=== PATIENT | male | born 1980 | race Caucasian/White ===

== ENCOUNTER 2024-03-26 14:01 | Outpatient (AMB) | payer BC, SELFPAY ==
--- NOTE | 2024-03-26 14:04 | AM.OFFWIN_ITS ---
Intake Vital Signs 03/26/24 14:05 Height 5 ft 9 in Weight 209 lb BMI 30.9 BP 150/82 H Blood Pressure Location Lt brachial Position Sitting Pulse 91 Pulse Source Pulse Oximeter Temp 98.0 F Temp Source Temporal Artery Scan Pulse Oximetry (%) 98 Oxygen Delivery Method Room Air Intake Visit Reasons: [employer] cyst Intake Note: pt is here for cyst on upper abd, patient sttaed he thought it was an ingrown hair and was given antibiotics for 10 days but it hasnt resolved. Patient Tobacco Use Status: Never used Tobacco Allergies No Known Allergies Allergy (Verified 03/26/24 14:06) Do you need a note to return to daycare/school/sports/work: Yes HPI [employer] cyst HPI Details This note is constructed using voice recognition software. While every effort has been made to ensure accuracy, galley cook errors may have been included. 43-year-old male patient presents with c oncern for cyst to his upper abdomen. He notes that he had 1 previously and was Treated on keflex for 10 days. Which seemed to resolve the 1st 1. He notes that he felt it was an ingrown hair as it appeared so, he squeezed the area, but nothing came out, which led to the treatment of the 1st area. A 2nd area developed, this is the area of concern today. He does shave his chest but has not done so in some time. He denies fever, chills. [facility] Social History Patient Tobacco Use Status: Never used Tobacco Review of Systems Const All systems reviewed & are unremarkable except as noted in HPI and below Physical Exam Vital Signs: Last Vital Signs Temp 98.0 F 03/26/24 14:05 Pulse 91 03/26/24 14:05 BP 150/82 H 03/26/24 14:05 Pulse Ox 98 03/26/24 14:05 Oxygen Delivery Method Room Air 03/26/24 14:05 BMI result Body Mass Index 30.9 Const General: cooperative, healthy appearing, comfortable, no acute distress and alert Orientation/consciousness: patient oriented x3 Limitations: no limitations Skin Other: Three separately identifiable areas to the upper abdomen. Left upper abdomen with scarring from recent lesion. Ingrown hair to mid upper abdomen. Minimal surrounding erythema to location. No warmth, discharge. Third area, ingrown hair mid upper abdomen slightly to the right of the previous. Erythematous at base of hair only. 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 Advised use of new razor with shaving, shaving in direction of the hair growth, once inflammation has subsided. Contact the office with increased erythema, warmth, discharge as a secondary antimicrobial may be necessary, however also Discussed avoidance of secondary antibiotic at this time to avoid recurrent use. Plan See above for full details and plan. Coding Level of Care Code New Pt Level 3 (10817) Diagnoses Ingrown hair L73.1
[2024-03-26 14:05] VITALS: BP 150/82; PULSE 91; TEMP 36.7; O2SAT 98; BMI 30.9
== END 2024-03-26 14:56 | disposition home or self-care (01) ==
PROVIDERS: PCP Physician Assistant; Visit Provider Registered Nurse
DX: L73.1 Pseudofolliculitis barbae (principal)
CPT/HCPCS: 99203